=== PATIENT | male | born 1995 | race Caucasian/White ===

== ENCOUNTER 2018-08-14 12:35 | Emergency (ER) | payer BC ==
--- NOTE | 2018-08-14 13:44 | RAD ---
LEFT ANKLE THREE VIEWS: History: Injury. Ankle pain. Comparison: None. FINDINGS: There is mild lateral malleolar soft tissue swelling. No acute displaced fracture or malalignment. IMPRESSION: No acute fracture or malalignment. POS: [facility]
== END 2018-08-14 13:44 | disposition home or self-care (01) ==
LOC: ERS 12:35
DX: S93.402A Sprain of unspecified ligament of left ankle, initial encounter (principal); F17.220 Nicotine dependence, chewing tobacco, uncomplicated; X50.1XXA Overexertion from prolonged static or awkward postures, initial encounter